=== PATIENT | female | born 1975 | race Two or more races ===

== ENCOUNTER 2018-08-20 06:10 | Day surgery (SDC) | payer OTHER ==
[2018-08-20] MEDS ORDERED: Tylenol #3 PO (08:20)
[2018-08-20] MEDS ORDERED: DOXYCYCLINE HY100 M2 PO (08:20)
== END 2018-08-20 14:50 | disposition home or self-care (01) ==
LOC: CIR.AMB 06:10
DX: N84.0 Polyp of corpus uteri (principal); D25.0 Submucous leiomyoma of uterus